=== PATIENT | female | born 1995 | race Hispanic/Latino ===

== ENCOUNTER 2023-09-10 04:28 | Emergency (ER) | payer SELFPAY ==
[2023-09-10 04:28] VITALS: BMI 35.8
[2023-09-10 04:35] VITALS: BP 127/86
[2023-09-10 04:36] VITALS: BP 127/86
[2023-09-10 04:40] LABS: Glucose - Point of Care 397 mg/dl (70-99)
[2023-09-10] MEDS: NSS 1000 IV (04:45)
[2023-09-10 04:49] LABS: % Basophils 0.5 % (0-2); % Eosinophils 1.8 % (0-6); % Immature Granulocytes 0.4 % (0-0.5); % Lymphocytes 22.1 % (20.5-51.1); % Monocytes 4.4 % (1.7-9.3); % Neutrophils 70.8 % (42.2-75.2); Absolute Basophils 0.1 10^3/uL (0-0.2); Absolute Eosinophils 0.2 10^3/uL (0-0.7); Absolute Lymphocytes 2.5 10^3/uL (1.2-3.4); Absolute Monocytes 0.5 10^3/uL (0.1-0.6); Hematocrit 40.4 % (37.0-47.0); Mean Corp Hgb Conc. 34.7 g/dL (33.0-37.0); Mean Corpuscular Volume 83.8 fL (81.0-99.0); Mean Platelet Volume 10.4 fL (7.4-10.4); Nucleated Red Blood Cells % 0 %; Platelet Count 272 10^3/uL (130-400); Red Blood Cell Count 4.82 10^6/uL (4.20-5.40); Red Cell Dist. Width 12.1 % (11.5-14.5); White Blood Cell Count 11.3 10^3/uL (4.8-10.8)
[2023-09-10 04:58] LABS: HCG, Serum Qualitative Screen Negative
[2023-09-10 05:00] VITALS: BP 124/67
[2023-09-10 05:04] LABS: ALT (SGPT) 21 U/L (0-35); AST (SGOT) 19 U/L (14-36); Albumin 4.8 g/dl (3.5-5.0); Alkaline Phosphatase 163 U/L (38-126); Blood Urea Nitrogen 14 mg/dl (7-17); Calcium 9.9 mg/dl (8.4-10.2); Carbon Dioxide 20 mmol/L (22-30); Chloride 99 mmol/L (98-107); Estimated Creatinine Clearance > 125 ml/min; Glucose 397 mg/dl (70-99); Lipase 60 U/L (23-300); Potassium 3.9 mmol/L (3.5-5.1); Sodium 132 mmol/L (135-145); Total Bilirubin 0.4 mg/dl (0.2-1.3); Total Protein 7.8 g/dl (6.3-8.2); eGFR > 60.00
[2023-09-10 05:05] LABS: Alcohol None Detected
[2023-09-10 06:00] VITALS: BP 130/77
--- NOTE | 2023-09-10 06:45 | EDRN ---
Crisis at bedside working on an assessment
[2023-09-10 07:00] VITALS: BP 129/77
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
[2023-09-10 07:37] VITALS: BP 134/89
== END 2023-09-10 07:59 | disposition home or self-care (01) ==
LOC: EMR 04:28
PROVIDERS: EMERGENCY PHYSICIAN Emergency Medicine
DX: S00.33XA Contusion of nose, initial encounter (principal); S70.312A Abrasion, left thigh, initial encounter; S90.812A Abrasion, left foot, initial encounter; R10.12 Left upper quadrant pain; R53.83 Other fatigue; V87.8XXA Person injured in other specified noncollision transport accidents involving motor vehicle (traffic), initial encounter; Y92.410 Unspecified street and highway as the place of occurrence of the external cause; E11.9 Type 2 diabetes mellitus without complications; Z63.0 Problems in relationship with spouse or partner
CPT/HCPCS: 99284; 96360; 70450; 71260; 72125; 73630; 74177; 80053; 82077; 82962; 83690; 84703; 85025; 86850; 86900; 86901; Q9967

== ENCOUNTER 2023-10-02 20:19 | Emergency (ER) | payer SELFPAY ==
[2023-10-02 20:41] VITALS: BP 143/80
[2023-10-02 21:08] LABS: % Basophils 0.5 % (0-2); % Eosinophils 1.5 % (0-6); % Immature Granulocytes 0.5 % (0-0.5); % Lymphocytes 16.1 % (20.5-51.1); % Monocytes 5.7 % (1.7-9.3); % Neutrophils 75.7 % (42.2-75.2); Absolute Basophils 0.1 10^3/uL (0-0.2); Absolute Eosinophils 0.2 10^3/uL (0-0.7); Absolute Immature Granulocytes 0.1 10^3/uL (0-0.05); Absolute Monocytes 0.7 10^3/uL (0.1-0.6); Absolute Neutrophils 9.4 10^3/uL (1.4-6.5); Hematocrit 37.3 % (37.0-47.0); Hemoglobin 12.3 g/dL (12.0-16.0); Mean Corpuscular Hgb 28.9 pg (27.0-31.0); Mean Corpuscular Volume 87.8 fL (81.0-99.0); Mean Platelet Volume 10.8 fL (7.4-10.4); Nucleated Red Blood Cells % 0 %; Platelet Count 274 10^3/uL (130-400); Red Blood Cell Count 4.25 10^6/uL (4.20-5.40); Red Cell Dist. Width 12.7 % (11.5-14.5); White Blood Cell Count 12.4 10^3/uL (4.8-10.8)
[2023-10-02 21:20] LABS: Lactic Acid 2.3 mmol/L (0.7-2.0)
[2023-10-02 21:21] LABS: ALT (SGPT) 25 U/L (0-35); AST (SGOT) 19 U/L (14-36); Albumin 4.8 g/dl (3.5-5.0); Alkaline Phosphatase 178 U/L (38-126); Blood Urea Nitrogen 8 mg/dl (7-17); Calcium 10.5 mg/dl (8.4-10.2); Carbon Dioxide 23 mmol/L (22-30); Chloride 99 mmol/L (98-107); Glucose 367 mg/dl (70-99); Potassium 4.1 mmol/L (3.5-5.1); Sodium 135 mmol/L (135-145); Total Bilirubin 0.5 mg/dl (0.2-1.3); Total Protein 7.9 g/dl (6.3-8.2); eGFR > 60.00
[2023-10-03 01:43] VITALS: BP 117/74
[2023-10-03 05:40] VITALS: BP 117/76
--- NOTE | 2023-10-03 06:37 | ED.GENMED ---
History of Present Illness
General
Chief Complaint: Skin Problem
Source: patient and saturator operator (Language line)
Time Seen by Provider: 10/03/23 06:01
Travel History
Have you had any contact with someone who has COVID-19?: No
Do you have any symptoms of coronavirus? Fever > 100 degrees, chills, cough, shortness of breath, sore throat, loss of taste or smell, muscle aches, or headache?: No
History of Present Illness
History of Present Illness:
28-year-old female presents to the emergency room complaining of left areas of redness and pain on her skin. 1 located in the left inguinal area and a second located on the right buttocks. Areas have been present for the past 3 to 4 days. She is
felt chills but has not taken her temperature. Patient states that she also has a history of diabetes. She is not currently taking any medication for her diabetes. Last time she took medication was about a year ago. Patient also states that she
has had a white vaginal discharge and itching in her vagina. Patient has been taking ibuprofen for the pain. No other medications.
Past History
Past History
ED Past Medical History: None
ED Past Surgical History: None
Social History
Tobacco: Non-smoker
Alcohol: None
Drug: None
Personal: Single
Living: with family
Employment: Not employed
Family History
Family History: Unable to obtain
Phy Exam
Physical Exam
Physical Exam:
General: Awake, Alert, Oriented X3. No acute distress.
Vitals: Mildly tachycardic
Head: Atraumatic
Eyes: Pupils equal, EOMI
Throat: Airway intact, no exudates, mildly dry mucosa
Neck: Trachea midline
Lungs: Clear and equal b/l
Heart: Regular rate, no murmurs
Abd: Soft, Nontender, No pulsatile mass
Genitalia: External genitalia slightly erythematous. Mild white discharge noted at the introitus
Neuro: Nonfocal
Skin: Warm, dry, small area of induration and tenderness noted right inferior buttock. There is no fluctuance. No discharge. There is a second area of very mild erythema and very mild induration in the left inguinal area which seems to be a
resolving area similar to the one on the buttock. No discharge from this area either.
Extremities: pulses equal b/l, no edema
Course
Orders/Labs/Results
Orders:
Orders
10/02/23 20:54
Complete Blood Count/With Diff Urgent
Comprehensive Metabolic Panel Urgent
Lactic Acid Urgent
Blood Culture Urgent
AMILCAR Source: Blood/Venous
Specimen Description:
10/03/23 06:34
Sulfamethox./Trimethoprim Ds [Bactrim Ds 800 mg/160 mg] 1 tablet PO NOW STA
10/03/23 06:40
Fluconazole [Diflucan] 150 mg PO NOW STA
10/03/23 06:41
METFORMIN HCl [Glucophage] 500 mg PO NOW STA
Abnormal Lab Results
10/02/23
20:54
WBC 12.4 H 10^3/uL
(4.8-10.8)
MPV 10.8 H fL
(7.4-10.4)
Abs Immat Gran (auto) 0.1 H 10^3/uL
(0-0.05)
Absolute Neuts (auto) 9.4 H 10^3/uL
(1.4-6.5)
Absolute Monos (auto) 0.7 H 10^3/uL
(0.1-0.6)
Neutrophils % 75.7 H %
(42.2-75.2)
Lymphocytes % 16.1 L %
(20.5-51.1)
Creatinine 0.4 L mg/dL
(0.6-1.0)
Glucose 367 H mg/dl
(70-99)
Lactic Acid 2.3 H mmol/L
(0.7-2.0)
Calcium 10.5 H mg/dl
(8.4-10.2)
Alkaline Phosphatase 178 H U/L
(38-126)
10/02/23 20:54
10/02/23 20:54
Vital Signs
Initial and Last Documented VS:
Initial Vital Signs
Temp Pulse Resp BP Pulse Ox
98.4 F 144 20 143/80 96
10/02/23 20:41 10/02/23 20:41 10/02/23 20:41 10/02/23 20:41 10/02/23 20:41
Last Documented Vital Signs
Temp Pulse Resp BP Pulse Ox
98.3 F 97 14 117/76 98
10/03/23 06:26 10/03/23 06:30 10/03/23 06:15 10/03/23 05:40 10/03/23 06:30
MDM/Problems Addressed
Differential Diagnosis Includes:
Cellulitis, abscess, folliculitis
MDM/Problems Addressed:
Patient has couple areas of skin infection. I do not feel fluctuance at this time and therefore I do not believe making an incision into the area is going to provide significant benefit. Will start her on Bactrim. In addition the patient's sugar
is elevated it was elevated during her visit in August. She has not taken any medication for this. We will give her dose of Glucophage here and sent give her a prescription for Glucophage. We will also give her a prescription for Bactrim. Will give
her dose of Diflucan here for suspected vaginal yeast infection.
Chronic conditions affecting care: DM
*Pulse Oximetry
Patient hypoxic: no
*Critical Care Note
Total Time (30-74mins, 75-104mins- exclusive of procedures): Not Applicable
ED Attending Note
-
Portions of this chart may have been created with voice recognition software.� Occasional wrong word or��sound alike� substitutions may have occurred due to the inherent limitations of voice recognition software.
Discharge Plan
Departure
Patient Disposition: Home (Routine Discharge)
Date of Disposition: 10/03/23
Time of Disposition: 06:42
Patient with high blood pressure during this ER visit?: No
Condition: Good
Discharge Problem:
Folliculitis, Diabetes, Vaginal yeast infection
Instructions: Cellulitis (Skin Infection), Adult (DC), Diabetes and diet, Vaginal Yeast Infection, Adult ED
Prescriptions:
New
metformin 500 mg tablet
500 mg PO BIDWMEAL Qty: 60 0RF
sulfamethoxazole-trimethoprim [Bactrim DS] 800-160 mg tablet
1 tab PO BID Qty: 14 0RF
Referrals:
[facility] [Outside]
NONE,* [Family Provider] -
Interventions
Interventions:
*Risk Screen - Suicide Last Done: 10/02/23 20:41
*General Assessment Last Done: 10/02/23 20:41
*Neglect/Abuse Screening Last Done: 10/02/23 20:41
ED- Fall Risk Assessment Last Done: 10/03/23 06:02
*ED COVID-19 Vaccine History Last Done: 10/03/23 07:05
*Nursing Disposition Last Done: 10/03/23 07:05
ED-Skin Assessment Last Done: 10/03/23 06:02
Discharge Date and Time
Discharge Date/Time: 10/03/23 07:05
Print Language: [id number]
[2023-10-03] MEDS: BACTRIM DS 800 MG/160 MG 1 TABLET PO (06:40)
[2023-10-03] MEDS: DIFLUCAN 150 MG PO (07:04)
[2023-10-03] MEDS: GLUCOPHAGE 500 MG PO (07:05)
== END 2023-10-03 07:05 | disposition home or self-care (01) ==
LOC: EMR 20:19
PROVIDERS: Student in an Organized Health Care Education/Training Program; EMERGENCY PHYSICIAN Emergency Medicine
DX: L73.9 Follicular disorder, unspecified (principal); B37.31 Acute candidiasis of vulva and vagina; E11.9 Type 2 diabetes mellitus without complications
CPT/HCPCS: 99283; 80053; 83605; 85025; 87040